=== PATIENT | female | born 1990 | race Caucasian/White ===

== ENCOUNTER 2018-01-21 17:25 | Inpatient (IN) ==
[~2018-01-21 17:25] MED LIST: Famotidine 20 MG/2 ML VIAL IVP PRN; Lidocaine -MPF 1% 2 ML VIAL INFILT ONE; Metoclopramide 10 MG/2 ML VIAL IVP PRN; Naloxone 0.4 MG/ML INJ IVP PRN; Ondansetron 4 MG/2 ML VIAL IVP PRN; Oxytocin 20 units/ LR 1000 mL 20 UNIT/1,000 ML BAG IVC ONE
[2018-01-21] MEDS ORDERED: Ringers Solution, Lactated 1,000 ML IVC SCH (17:30)
[2018-01-21 18:12] LABS: Basophils % 0.2 %; Eosinophils % 0.1 %; Hematocrit 38.8 % (35.3-44.9); Hemoglobin 12.9 g/dL (11.5-15.4); Immature Granulocytes % 0.7 % (0-4); Mean Corpuscular HGB Conc 33.2 g/dL (31.6-35.5); Mean Corpuscular Hemoglobin 30.3 pg (28.0-33.3); Mean Corpuscular Volume 91.1 fL (83.0-100.0); Mean Platelet Volume 11.6 fL (9.4-12.4); Monocytes # 0.5 K/mcL (0.0-1.3); Monocytes % 3.8 %; Neutrophils # 10.6 K/mcL (1.6-8.9); Platelet Count 228 K/mcL (140-400); Red Blood Count 4.26 M/mcL (3.82-4.97); Red Cell Distribution Width 12.3 % (11.5-14.5); Segmented Neutrophils % 80.2 %
--- NOTE | 2018-01-21 18:15 | OB/GYN History & Physical ---
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 Fraser is a 27 year old female at 37 weeks 1 day gestation with an estimated date of of 02/10/18 dated by early ultrasound. She presents with complaints of spontaneous rupture of membranes around 2:00 this afternoon. She also reports intense contractions. She endorses good movement and denies vaginal bleeding. Her has been complicated by chronic ringworm outbreaks. She has been seen by the midwives during this . records are available electronically and have been reviewed. Labs: O- GBS negative Hep B negative GC/CL negative HIV negative T. Palladium negative Rubella immune Varicella immune Obstetrical History - Pregnancies : 1 Para: 0 Term: 0 : 0 Ab's: 0 Livin Review of System OB All systems PM: reviewed and no additional remarkable complaints except as stated Exam - Constitutional Constitutional: well developed, well nourished, moderate distress, obese - HEENT HEENT: PERRL, Normocephaly, Mucus Membranes Moist - Neck Neck exam: full ROM - Lungs Respiratory exam: CTAB - Cardiovascular Cardiovascular exam: RRR, +S1, +S2 - Breasts Breast: bilateral: normal - Abdomen Abdomen: Present: bowel sounds normal, gravid, non tender - Extremities Extremities exam: full ROM, normal capillary refill, normal inspection, pedal edema - Vulva Vulva: bilateral: normal - Vagina Vagina: Present: normal moisture - Cervix Dilation: 10 Effacement: 100 Station: +1 - Uterus Uterus exam: Present: normal size, normal contour - Anus/Rectum Anus/Rectum: Present: normal perianal skin Results All other labs normal. - VTE Reasons for not Prescribing Prophylaxis: Treatment not Indicated - Low risk for VTE
--- NOTE | 2018-01-21 18:28 | OB/GYN Procedure Note ---
Delivery - Delivery Date: 01/21/18 Provider: Felicity Bowling Intrapartum events: precipitous labor- <3hr Delivery induction: none Delivery monitor: external FHT Anesthesia: local Quantitated Blood Loss: 200 - (s) A Infant Delivery Date: 01/21/18 Delivery Time: 17:21 Presentation: vertex Position: NEGRITA Route of delivery: Gender: Male Viability: Viable Pounds: 7 Ounces: 15 Weight Gram: 3.61 kg at 1 minute: 8 at 5 mins: 9 Shoulder Dystocia: not encountered Specimens collected: cord blood Placenta: spontaneous Cord: 3 umbilical vessels - Repair Episiotomy: none Laceration Description: Perineal - 1st Degree - Complications Delivery complications: none Delivery comments: Ms. Fraser is a 27-year-old G1 now P1 who is admitted for active labor. She presented completely dilated with fetus at +1 station. She pushed for about 15 minutes. She delivered a viable male infant, NEGRITA, over a first-degree degree laceration in hands and knees position. No nuchal cord was identified and no shoulder dystocia was encountered. After delivery, the was passed through the mother's legs and handed to her where she brought the to her chest, [id number]. She was assisted to her back where the cord was allowed to stop pulsating. It was then double clamped and cut by FOB. scores were 8 at 1 minute and 9 at 5 minutes. The infant weighed 7 lbs. 15 oz. Placenta delivered ([place]) spontaneously and intact. Inspection revealed a first degree laceration which was repaired with 3-0 vicryl under local anesthesia. Uterus was firm with no active bleeding. EBL was 200mL. Placenta and umbilical artery blood gases were not sent. There were no complications during the procedure. Mom and infant are [id number] following delivery. - Disposition Mom disposition: stable in LDR [place] disposition: stable in LDR
[2018-01-21] MEDS ORDERED: Oxytocin 20 units/ LR 1000 mL 20 UNIT/1,000 ML BAG IVC ONE (19:16)
[2018-01-21] MEDS ORDERED: Oxytocin 20 units/ LR 1000 mL 20 UNIT/1,000 ML BAG IVC SCH (20:19)
[2018-01-21] MEDS ORDERED: Rho Immune Globulin 1,500 UNIT SYRINGE IM PRN (20:19)
[2018-01-21] MEDS ORDERED: Acetaminophen 325 MG TABLET PO PRN (20:19)
[2018-01-21] MEDS ORDERED: Benzocaine/Menthol 56 GM AEROSOL SPRAY TP PRN (20:19)
[2018-01-22] MEDS: Ibuprofen 600 MG TABLET PO PRN ×2 (03:32→09:56)
--- NOTE | 2018-01-22 08:24 | Discharge Summary ---
Date of Encounter: 01/22/18 Time of Encounter: 08:22 - Discharge Diagnosis (1) Vaginal delivery Priority: Primary Status: Acute Comments: Continue routine care discharge home today follow up with CNM for visit in 4-6 weeks (2) Breast feeding status of mother Priority: Secondary Status: Acute Comments: lactations support prn - Discharge Medications Prescriptions: Ibuprofen [Motrin] 600 mg PO Q6HR PRN #60 tablet PRN Reason: Cramping Breast Pump [BREAST PUMP] 1 each .ROUTE AD #1 each Home Medications: Benzocaine/Menthol [place] [Dermoplast [place]] 1 appl TP QID PRN aerosol 01/22/18 [Rx] Breast Pump [BREAST PUMP] 1 each .ROUTE AD #1 each 01/22/18 [Rx] Ibuprofen [Motrin] 600 mg PO Q6HR PRN #60 tablet 01/22/18 [Rx] Vit/FA 1 each PO DAILY tablet 01/22/18 [Rx] Allergies/Adverse Reactions: 3 Allergy/AdvReac Type Severity Reaction Status Date / Time latex AdvReac Rash Verified 01/21/18 20:18 Data Procedures and tests throughout hospitalization: Laboratory Tests 01/21/18 17:05 WBC 13.2 H RBC 4.26 Hgb 12.9 Hct 38.8 MCV 91.1 MCH 30.3 MCHC 33.2 RDW 12.3 Plt Count 228 MPV 11.6 Immature Gran % 0.7 Seg Neutrophils % 80.2 Lymphocytes % 15.0 Monocytes % 3.8 Eosinophils % 0.1 Basophils % 0.2 Neutrophils # 10.6 H Lymphocytes # 2.0 Monocytes # 0.5 Eosinophils # 0.0 Basophils # 0.0 Labs on day of discharge: Labs from last 24 hours 01/21/18 17:05 WBC 13.2 H RBC 4.26 Hgb 12.9 Hct 38.8 MCV 91.1 MCH 30.3 MCHC 33.2 RDW 12.3 Plt Count 228 MPV 11.6 Immature Gran % 0.7 Seg Neutrophils % 80.2 Lymphocytes % 15.0 Monocytes % 3.8 Eosinophils % 0.1 Basophils % 0.2 Neutrophils # 10.6 H Lymphocytes # 2.0 Monocytes # 0.5 Eosinophils # 0.0 Basophils # 0.0 Date of admission: 01/21/18 17:25 Consults: 06/11/18 20:19 Consult to [employer] Consultant [CONS] Routine Comment: Vaginal delivery, consult needed Discharging clinician: Guerita Shah Anticipated date of discharge: 01/22/18 - Patient Status Disposition: Home, Self-Care Condition: Good Functional capacity at discharge: independent ambulation - Discharge Instructions Follow Up With: Felicity oBwling [Advanced Practice Nurse] - - Diet and Activity Activity: increase activity as tolerated Diet: regular diet Hospital Course Reason for admission: active labor Delivery: Episiotomy: none Laceration: 1st degree Other procedures: none complications: none Discharge diagnosis: IUP at term delivered baby: male (breast feeding) Time Attestation: Total time spent providing and/or coordinating discharge services: Time Spent: Less than 30 minutes Exam - Constitutional Vitals: Temp Pulse Resp BP Pulse Ox 98.2 F 81 18 104/72 100 01/22/18 07:52 01/22/18 07:52 01/22/18 07:52 01/22/18 07:52 01/22/18 07:52 General appearance IM: A&O X 3, pleasant, answers questions appropriately - Respiratory Respiratory exam: Present: CTAB - Cardiovascular Cardiovascular exam IM: Present: RRR, +S1, +S2 - GI/Abdominal GI/Abdominal exam IM: normal bowel sounds - Uterine Tone: Firm Uterus Position: 1 Finger Below Umbilicus, Midline - Extremities Exam Extremities exam IM: Present: full ROM, normal capillary refill, normal inspection - Neurological Exam Neurological exam: alert, oriented X3, reflexes normal
[2018-01-22] MEDS ORDERED: Prenatal Vit/FA 1 EACH TABLET PO SCH (09:00)
[2018-01-22 16:10] VITALS: BP 107/72
== END 2018-01-22 18:29 | disposition home or self-care (01) | DRG 774 ==
LOC: 1NENULAB → 1NENUOBS 20:17
PROVIDERS: ADMIT Advanced Practice Midwife; ATTEND Advanced Practice Midwife